=== PATIENT | male | born 2000 | race Caucasian/White ===

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

== ENCOUNTER 2021-07-07 13:28 | Emergency (ER) | payer OTHER ==
[2021-07-07 14:20] VITALS: RESP 18
[2021-07-07] MEDS ORDERED: KETOROLAC 15 MG/ML 1 ML VIAL IM STA (14:49)
--- NOTE | 2021-07-07 15:01 | ED ---
General Adult HPI - General Chief complaint: Extremity Problem,Nontraumatic Stated complaint: Lft arm pain Time Seen by Provider: 07/07/21 14:15 Source: patient, RN notes reviewed, old records reviewed Mode of arrival: EMS Limitations: no limitations - History of Present Illness Initial comments: This is a 21-year-old male who presents emergency department stating that he has had a little bit of a cough lately and today he was at work and he coughed extremely hard and he felt a pain going down from his neck to his left thumb. Patient states the pain lasted about a minute and a half and slowly subsided. Patient states currently his thumb still feels a little weird to move but is able to move he has normal strength he has normal sensation. Patient denies any headache patient denies any other symptoms at this time. - Related Data Home Medications Medication Instructions Recorded Confirmed Cetirizine HCl [Zyrtec] 10 mg PO DAILY 06/20/18 06/20/18 Dextroamphetamine/Amphetamine 10 mg PO DAILY 06/20/18 06/20/18 [Adderall] Lisdexamfetamine Dimesylate 60 mg PO QAM 06/20/18 06/20/18 [Vyvanse] Omeprazole [PriLOSEC] 20 mg PO DAILY 06/20/18 06/20/18 Sertraline [Zoloft] 100 mg PO HS 06/20/18 06/20/18 Sucralfate [Carafate] 1 gm PO ACHS 06/20/18 06/20/18 levETIRAcetam [Keppra] 750 mg PO BID 06/20/18 06/20/18 lisinopriL [Zestril] 5 mg PO DAILY 06/20/18 06/20/18 Allergies Allergy/AdvReac Type Severity Reaction Status Date / Time Sulfa (Sulfonamide Allergy Rash/Hives Verified 07/07/21 14:20 Antibiotics) Review of Systems ROS Statement: Those systems with pertinent positive or pertinent negative responses have been documented in the HPI. ROS Other: All systems not noted in ROS Statement are negative. Past Medical History Past Medical History: Diabetes Mellitus, Hypertension History of Any Multi-Drug Resistant Organisms: None Reported Past Surgical History: No Surgical Hx Reported Past Psychological History: No Psychological Hx Reported Smoking Status: Never smoker Past Alcohol Use History: None Reported Past Drug Use History: None Reported General Exam - General Exam Comments Initial Comments: GENERAL: Patient is well-developed and well-nourished. Patient is nontoxic and well- hydrated and is in no acute distress. ENT: Neck is soft and supple. No significant lymphadenopathy is noted. Oropharynx is clear. Moist mucous membranes. Neck has full range of motion without eliciting any pain. EYES: The sclera were anicteric and conjunctiva were pink and moist. Extraocular movements were intact and pupils were equal round and reactive to light. Eyelids were unremarkable. PULMONARY: Unlabored respirations. Good breath sounds bilaterally. No audible rales rhonchi or wheezing was noted. CARDIOVASCULAR: There is a regular rate and rhythm without any murmurs gallops or rubs. ABDOMEN: Soft and nontender with normal bowel sounds. SKIN: Skin is clear with no lesions or rashes and otherwise unremarkable. NEUROLOGIC: Patient is alert and oriented x3. Cranial nerves II through XII are grossly intact. Motor and sensory are also intact. Normal speech, volume and content. Symmetrical smile. MUSCULOSKELETAL: Normal extremities with adequate strength and full range of motion. Patient has some slight pain when I press on the thumb there is no swelling is no lack of sensation is no redness. LYMPHATICS: No significant lymphadenopathy is noted PSYCHIATRIC: Normal psychiatric evaluation. Limitations: no limitations Course Vital Signs 07/07/21 14:17 Temperature 98.0 F Pulse Rate 102 H Respiratory 18 Rate Blood Pressure 161/121 O2 Sat by Pulse 95 Oximetry Medical Decision Making - Medical Decision Making Chest x-ray shows no acute abnormality. X-ray of the C-spine shows normal foramen narrowing between C4-C5 from spurring. New. Patient received Toradol in the emergency department. Disposition Clinical Impression: Cervical radiculopathy Disposition: HOME SELF-CARE Condition: Good Additional Instructions: Patient's take 800 mg Motrin by mouth every 6 hours Is patient prescribed a controlled substance at d/c from ED?: No Referrals: Mio Maravilla MD [Primary Care Provider] - 1-2 days Time of Disposition: 15:44
--- NOTE | 2021-07-07 15:32 | XR ---
EXAMINATION TYPE: XR chest 2V DATE OF EXAM: 07/07/2021 COMPARISON: NONE HISTORY: Chest pain TECHNIQUE: Frontal and lateral views of the chest are obtained. FINDINGS: There is no focal air space opacity. No evidence for pneumothorax. No pleural effusion. The cardiac silhouette size is within normal limits. The osseous structures are grossly intact. IMPRESSION: 1. No acute cardiopulmonary process.
--- NOTE | 2021-07-07 15:34 | XR ---
EXAMINATION TYPE: XR cervical spine comp DATE OF EXAM: 07/07/2021 COMPARISON: None HISTORY: 21-year-old male trauma, continuing left arm pain TECHNIQUE: 5 views FINDINGS: No predental space widening or prevertebral soft tissue swelling. Alignment is maintained with straig htening of the normal cervical lordosis. Disc interspaces are preserved. Mild uncovertebral joint spu rring contributes to mild bony neuroforaminal narrowing on the left at C4-C5. IMPRESSION: There may be mild left-sided neural foraminal narrowing at C4-C5 secondary to some uncovertebral join t spurring. Straightening of the normal cervical lordosis could be positional or due to muscle spasm.
[2021-07-07 15:51] VITALS: BP 155/89; PULSE 97; TEMP 97.7
== END 2021-07-07 15:52 | disposition home or self-care (01) ==
LOC: EC 13:28
DX: M54.12 Radiculopathy, cervical region (principal); M79.645 Pain in left finger(s); E11.9 Type 2 diabetes mellitus without complications; I10 Essential (primary) hypertension; Z79.899 Other long term (current) drug therapy; Z88.2 Allergy status to sulfonamides
CPT/HCPCS: 72050; 71046; 99283; 96372; J1885